=== PATIENT | female | born 1980 | race Native Hawaiian/Other Pacific Islander ===

== ENCOUNTER 2022-12-27 08:10 | Outpatient (CLI) | payer SELFPAY | END 2022-12-27 08:11 | disposition home or self-care (01) | PROVIDERS: Visit Provider Physician Assistant | DX: Z13.6 Encounter for screening for cardiovascular disorders (principal); Z13.1 Encounter for screening for diabetes mellitus | CPT/HCPCS: 80061; 82947 ==

== ENCOUNTER 2024-02-23 12:24 | Outpatient (CLI) | payer OTHER, SELFPAY ==
--- OUTSIDE RECORDS SUMMARY | 2024-02-23 12:27 | XMS_ITS | Clinical Summary ---
Author Organization [facility] Address [place], [place] [address] Care Team Providers Care Floor Hand Name Role Phone Clinic, [facility] Primary [facility] Pr ovider Allergies Active Allergy Reactions Criticality Noted Date Comments Penicillins Rash 03/10/2007 Medications No known medications Active Problems No known active problems Immunizations Name Administration Dates Next Due COVID-19 vaccine (DoubleDutch 30mcg/0.3mL) P F, MDV 05/24/2021,05/03/2021 Influenza, IIV3 (Age 6-35 mos) 01/01/2011 Influenza, IIV4 01/08/2019,04/30/2018 Tdap 01/08/2019,04/30/2018 Family History Medical History Relation Name Comments Cancer Father brain tumor Diabetes Mother Relation Name Status Comments Father Mother Social History Tobacco Use Types Packs/Day Years Used Date Smoking Tobacco: Never Smokeless Tobacco: Never Tobacco Cessation:Counseling Given: Yes Alcohol Use Standard Drinks/Week Comments Yes 0 (1 standard drink = 0.6 oz pur e alcohol) occasional PHQ-2 Answer Date Recorded PHQ-2 TOTAL SCORE 1 03/30/2021 Social Connections Answer Date Recorded Frequency of Communication with Friends and Fami ly Not on file 03/30/2021 Financial Resource Strain Answer Date R ecorded Difficulty of Paying Living Expenses Not on file 03/30/2021 Difficulty of Paying Living Expenses Not on file 03/30/2021 Sex and Gender Information Value Date Recorded Sex Assigned at Not on file Gender Identity Not on file Sexual Orientation Not on file Obstetrics History Para Term AB IAB SAB Ectopic Multiple Livin g Live Births 6 4 2 0 2 0 2 0 0 2 2 Date Outcome GA Total Labor Labor/2nd/3rd Weight Sex Type Anes PTL Jessica A1 A5 Name Clin Term Term 008 Para 40w 0d F CS-Un spec Living 2017 SAB 8w0 d 2017 SAB 12w 0d 019 Para 38w 0d M CS-Un spec Living Complications:Gestational hy pertension Last Filed Vital Signs Vital Sign Reading Time Taken Comments Blood Pressure 138/86 11/12/2021 11:39 AM CDT Pulse 115 11/12/2021 11:39 AM CDT Temperature 36.9 C (98.4 F) 11/12/2021 11:39 AM CDT Respiratory Rate - - Oxygen Saturation 100% 11/12/2021 11:39 AM CDT Inhaled Oxygen Concentration - - Weight 75.8 kg (167 lb 3.2 oz) 11/12/2021 11:39 AM CDT Height 162.6 cm (5' 4) 11/12/2021 11:39 AM CDT Body Mass Index 28.7 11/12/2021 11:39 AM CDT Plan of Treatment Health Maintenance Due Date Last Done Comments Hepatitis C screening for age 18-79 1997 Depression screening for age 12+ 03/30/2022 03/30/2021 BMI (ht and wt on same day) for age 18+ 11/12/2022 11/12/2021, 03/30/2021 COVID-19 vaccine series (2023- season) 2023 05/24/2021, 05/03/2021 Influenza for age 9-49 11/30/2023 01/08/2019, 2018 Pap test for age 21-65 12/13/2025 3, 12/13/2022, 07/21/2018, Additional history exists Tetanus booster 01/08/2029 01/08/2019, 04/30/2018 HIV for age 15-65 Completed 05/14/2007 Tdap Completed 01/08/2019, 04/30/2018 Pneumococcal series for age 6-64 Aged Out No longer eligible based on patient's age to complete this topic Procedures Procedure Name Priority Date/Time Associated Diagnosis Comments HPV HIGH RISK Routine 12/13/2022 3:45 PM CDT ANTI HIV 1/2 Routine 05/14/2007 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 Supervision Of Normal First from Last 3 Months or Most Recently Relevant to Health Maintenance Results * HPV HIGH RISK (12/13/2022 3:45 PM CDT) TYPE 16 Negative Negative 12/19/2022 11:20 AM CDT [facility] TYPE 18 Negative Negative 12/19/2022 11:20 AM CDT [facility] OTHER HIGH RISK TYPES Negative Negative 12/19/2022 11:20 AM CDT [facility] Other (Cervical) 12/13/2022 3:45 PM CDT 12/17/2022 2:46 PM CDT Narrative [facility] - 12/19/2022 11:20 AM CDT HPV types 16, 18, 31, 33, 35, 39, 45, 51, 52, 56, 58, 59, 66 and 68 DNA were undetectable or below the pre-set threshold. 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
== END 2024-02-23 12:25 | disposition home or self-care (01) ==
PROVIDERS: Visit Provider Registered Nurse
DX: Z00.00 Encounter for general adult medical examination without abnormal findings (principal); Z13.6 Encounter for screening for cardiovascular disorders; Z13.1 Encounter for screening for diabetes mellitus
CPT/HCPCS: 80061; 82947

== ENCOUNTER 2024-05-20 09:06 | Outpatient (CLI) | payer OTHER, SELFPAY ==
--- NOTE | 2024-05-20 09:15 | CRLHL7_ITS ---
For Patients: As a result of the Century Cures Act, medical imaging exams and procedure reports are released immediately into your electronic medical record. You may view this report before your referring provider. If you have questions, please contact your health care provider. BILATERAL SCREENING MAMMOGRAM WITH COMPUTER-AIDED DETECTION AND TOMOSYNTHESIS TECHNIQUE: CC and MLO views were obtained. These mammographic images have been obtained using full-field digital technique. These mammographic images were interpreted with the benefit of computer-aided detection. Breast Tomosynthesis was used in this interpretation. COMPARISON FILM: 05/04/21. FINDINGS: There are scattered areas of fibroglandular density IMPRESSION: There is no radiographic evidence for malignancy. ASSESSMENT: BI-RADS Category 1: Negative RECOMMENDATION: Routine screening mammogram in 1 year. A lay language report of this examination will be provided to the patient. Archie Lal M.D. Diagnostic Radiologist [email or web address] Transcribed: 2:36 p.vinicius vang/Dictated by: Archie Lal MD @ 05/25/2024 12:36:00 PM (Electronically Signed)
== END 2024-05-20 09:07 | disposition home or self-care (01) ==
LOC: MAMMO 09:06
PROVIDERS: Visit Provider Registered Nurse
DX: Z12.31 Encounter for screening mammogram for malignant neoplasm of breast (principal)
CPT/HCPCS: 77063; 77067; T1013